=== PATIENT | female | born 2000 | race Two or more races ===

== ENCOUNTER 2024-06-26 05:02 | Inpatient (IN) | payer BC ==
[2024-06-26] MEDS: Lactated Ringers 1,000 ML IV SCH (05:50)
[2024-06-26] MEDS ORDERED: Sodium Chloride 0.9% 10 ML Syringe FLUSH PRN ×2 (05:56→06:43)
[2024-06-26] MEDS ORDERED: Sodium Chloride 0.9% 20 ML SDV IV PRN ×2 (05:56→06:43)
[2024-06-26] MEDS ORDERED: Sodium Chloride 0.9% 2.5 ML Syringe FLUSH PRN ×2 (05:56→06:43)
[2024-06-26 06:13] LABS: HEMOGLOBIN 12.1 g/dL (12.0-16.0); MEAN CORPUSCULAR HEMOGLOBIN 30.9 pg (28.0-32.0); MEAN CORPUSCULAR HGB CONC 34.6 g/dL (32.0-36.0); MEAN CORPUSCULAR VOLUME 89.3 fL (83.0-99.0); PLATELET COUNT,PLT 188 K/uL (150-400); RED BLOOD CELL COUNT 3.92 M/uL (4.10-5.30); WHITE BLOOD CELL COUNT,WBC 8.35 K/uL (3.9-11.3)
[2024-06-26] MEDS ORDERED: Citric Acid/Sodium Citrate Solution 30 ML Cup PO ONE (06:43)
[2024-06-26] MEDS ORDERED: Ondansetron 4 MG/2 ML SDV IVPUSH PRN ×2 (06:43→08:27)
[2024-06-26] MEDS ORDERED: Lactated Ringers 1,000 ML IV SCH (06:45)
[2024-06-26] MEDS ORDERED: Oxytocin/0.9 % Sodium Chloride 30 UNIT/500 ML BAG IV SCH (06:45)
[2024-06-26] MEDS ORDERED: Morphine PF 10 MG/10 ML SDV ONE (06:52)
[2024-06-26] MEDS ORDERED: fentaNYL 100 MCG/2 ML SDV ONE (06:52)
[2024-06-26] MEDS ORDERED: Oxytocin 10 Units/1 ML SDV ONE (06:53)
[2024-06-26] MEDS: Oxytocin/0.9 % Sodium Chloride 30 UNIT/500 ML BAG IV SCH (08:08)
[2024-06-26] MEDS ORDERED: Acetaminophen 500 MG Tab PO PRN (08:27)
[2024-06-26] MEDS ORDERED: Lanolin 100% Cream 7 GM Tube TOP PRN (08:27)
[2024-06-26] MEDS ORDERED: Benzocaine/Menthol 20%-0.5% Spray 78 GM Cannister TOP PRN (08:27)
[2024-06-26] MEDS ORDERED: oxyCODONE 5 MG Tab PO PRN (08:27)
[2024-06-26] MEDS ORDERED: Witch Hazel Medicated Pads 40/Jar TOP PRN (08:27)
[2024-06-26 08:46] LABS: PH,UMBILICAL ARTERIAL 7.225 (7.18-7.38); PH,UMBILICAL VENOUS 7.259 (7.25-7.45)
[2024-06-26] MEDS: Ibuprofen 800 MG Tab PO PRN (08:56)
[2024-06-27 06:03] LABS: HEMATOCRIT 31.6 % (37.0-47.0); HEMOGLOBIN 10.7 g/dL (12.0-16.0)
[2024-06-27] MEDS: Citric Acid/Sodium Citrate Solution 30 ML Cup PO ONE (07:20)
[2024-06-28] MEDS: Docusate Sodium 100 MG Cap PO PRN (09:02)
== END 2024-06-28 12:20 | disposition home or self-care (01) | DRG 560 ==
LOC: MW.OBCHECK 05:02 → MW.OB 05:03 → UNDOADMIN 05:57 → MW.OBCHECK 05:57 → MW.OB 05:57 → UNDOADMIN 12:32 → MW.OB 12:32
PROVIDERS: ADMIT Obstetrics & Gynecology; ATTEND Obstetrics & Gynecology
PROC: 10E0XZZ Delivery of Products of Conception, External Approach (ICD-10-PCS; principal; 2024-06-26)
DX: O42.02 Full-term premature rupture of membranes, onset of labor within 24 hours of rupture (principal); Z37.0 Single live birth; Z3A.37 37 weeks gestation of pregnancy; O34.211 Maternal care for low transverse scar from previous cesarean delivery
CPT/HCPCS: 36415; 59025; 59409; 62322; 82803; 84112; 85014; 85018; 85027; 86592; 86850; 86900; 86901; A9270-GY; J2274; J2590; J3010; J7120

== ENCOUNTER 2025-05-18 06:33 | Emergency (ER) | payer SELFPAY | END 2025-05-18 07:44 | disposition home or self-care (01) | LOC: MW.ED 06:33 | DX: R07.9 Chest pain, unspecified (principal); Z79.899 Other long term (current) drug therapy | CPT/HCPCS: 93005; 93010; 99283; 99284 ==